=== PATIENT | male | born 1980 | race Caucasian/White ===

== ENCOUNTER 2021-12-27 10:19 | Emergency (ER) | payer SELFPAY ==
[~2021-12-27] VITALS: Ht 185 cm; Wt 85.0 kg
[2021-12-27] MEDS ORDERED: NS IV 1000 ML 1,000 ML IV STA (10:27)
[2021-12-27] MEDS ORDERED: morphine INJ 10 MG/ML 1ML (SYR OR VIAL) IVP STA (10:27)
[2021-12-27] MEDS ORDERED: ONDANSETRON 4 MG/2 ML (SDV) Z0FRAN IVP STA (10:27)
[2021-12-27] MEDS ORDERED: TETANUS,DIPTH,PERTUSS P/F (BOOSTRIX) 0.5 ML VIAL IM ONE (10:30)
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
[2021-12-27 11:03] VITALS: BP 156/98
[2021-12-27] MEDS ORDERED: LACTATED RINGERS 1,000 ML IV STA (11:09)
== END 2021-12-27 11:40 | disposition short-term general hospital (02) ==
LOC: ER FS 10:23
DX: T23.392A Burn of third degree of multiple sites of left wrist and hand, initial encounter (principal); T23.391A Burn of third degree of multiple sites of right wrist and hand, initial encounter; T20.20XA Burn of second degree of head, face, and neck, unspecified site, initial encounter; T31.10 Burns involving 10-19% of body surface with 0% to 9% third degree burns; Z23 Encounter for immunization; X08.8XXA Exposure to other specified smoke, fire and flames, initial encounter
CPT/HCPCS: 90715

== ENCOUNTER 2023-02-01 15:01 | Emergency (ER) | payer SELFPAY ==
[~2023-02-01] VITALS: Ht 185 cm; Wt 85.0 kg
[2023-02-01] MEDS ORDERED: LIDOCAINE 1% INJ 20 ML VIAL ONE (15:10)
[2023-02-01] MEDS ORDERED: LIDOCAINE 1% INJ 20 ML VIAL INJ ONE (15:15)
[2023-02-01] MEDS ORDERED: TETANUS,DIPTH,PERTUSS P/F (BOOSTRIX) 0.5 ML VIAL IM ONE (15:15)
--- NOTE | 2023-02-01 15:30 | Diagnostic Imaging Report ---
CLINICAL INDICATION: Patient with laceration of the middle and ring fingers of the right hand. Patient cut finger with a chainsaw. EXAM: X-ray of the right hand fingers, three views. COMPARISON: None. FINDINGS AND IMPRESSION: 1: There is no fracture or dislocation seen on this exam. 2: There are soft tissue avulsion injuries involving the volar aspect of the third and fourth digits in the region of the middle phalanx. There is no radiodense foreign object. 3: The remainder of this exam is unremarkable. Dictated by: Dictated on workstation # [id number]
--- NOTE | 2023-02-01 16:19 | ED Upper Extremity ---
General Chief Complaint: Laceration Stated Complaint: RT FINGERS LAC Nursing Triage Note: Patient has presented to ER with cc of laceration to his middle and ring finger of his right hand. He reports that he cut his finger with a chainsaw. Source: patient Exam Limitations: no limitations History of Present Illness Date Seen by Provider: Feb 01, 2023 Time Seen by Provider: 15:04 Initial Comments 42-year-old right-handed male patient is stated he had a chainsaw injury to right middle and ring fingers prior to arrival to ER. Patient denies focal neurodeficit and other injuries. Patient rated his pain as a mild pain. Patient is not up-to-date with tetanus immunization. Onset: just prior to arrival Pain/Injury Location: right 3rd finger, right 4th finger Method of Injury: incised (Chainsaw) Allergies and Home Medications Allergies Coded Allergies: No Known Drug Allergies (Unverified , 12/27/21) Patient Home Medication List Home Medication List Reviewed: Yes Cephalexin (Cephalexin) 500 Mg Tablet, 500 MG PO QID Prescribed by: Marjorie aguila on 02/01/23 1633 Hydrocodone/Acetaminophen (Hydrocodone-Acetamin 5-325 mg) 5 Mg-325 Mg Tablet, 1 TAB PO Q6H PRN for PAIN-MODERATE (5-7) Prescribed by: Marjorie aguila on 02/01/23 1634 Review of Systems Constitutional: see HPI EENTM: see HPI Respiratory: see HPI Cardiovascular: see HPI Gastrointestinal: see HPI Genitourinary: see HPI Musculoskeletal: see HPI Skin: see HPI Psychiatric/Neurological: No Symptoms Reported, See HPI Past Pmwbert-Fzqsjv-Kkwstl Hx Patient Social History Tobacco Use?: No Use of E-Cig and/or Vaping dev: No Substance use?: No Alcohol Use?: No Immunizations Up To Date Tetanus Booster (TDap): More than 5yrs Past Medical History Surgery/Hospitalization HX: Hypertension Surgeries: No Respiratory: No Cardiac: Yes Hypertension Physical Exam Vital Signs Vital Signs - First Documented 02/01/23 15:11 Pulse 76 Resp 16 B/P (MAP) 152/82 (105) Pulse Ox 96 O2 Delivery Room Air Capillary Refill : Height, Weight, BMI Height: '" Weight: lbs. oz. kg; 24.00 BMI Method: General Appearance: WD/WN, no apparent distress HEENT: PERRL/EOMI Neck: non-tender Cardiovascular: regular rate, rhythm, no edema Respiratory: chest non-tender, lungs clear, normal breath sounds, no respiratory distress, no accessory muscle use Back: normal inspection Shoulder: normal inspection Elbow/Forearm: normal inspection Wrist: Yes normal inspection Hand: Right, laceration Neurologic/Tendon: normal sensation, tendon function deficit (Index finger impaired flexion of distal phalanx) Skin: other (Laceration of volar side of third right finger in medial phalanx 1.5 cm with contused tissue, deep laceration and contused tissue with exposed fat tissue of volar side of right fourth finger on middle phalanx with limited flexion of distal phalanx ) Procedures/Interventions Other Wound Location Right ring finger Right middle finger Wound Length (cm): 2 Wound's Depth, Shape: irregular, stellate, contused tissue, sub Q, tendon Wound Explored: no foreign body removed Irrigated w/ Saline (ccs): 250 Anesthesia: 1% Lidocaine (Digital block and local anesthesia) Volume Anesthetic (ccs): 8 Wound Debrided: minimal Suture: Prolene Suture Size: 4-0 Number of Sutures: 7 Sterile Dressing Applied?: Yes Progress Nonadhesive dressing and finger splint was applied Laceration of right middle finger of 1.5 cm length of laceration was repaired with 3 sutures of 4-0 after local anesthesia with lidocaine 1%. Dressing was applied.. Progress/Results/Core Measures Results/Orders My Orders Orders - MARJORIE AGUILA MD Finger(S) (02/01/23 15:10) Dipht,Pertuss(Acell),Tet Adult (Boostrix (02/01/23 15:15) Lidocaine 1% Inj 20 Ml (Xylocaine 1% Inj (02/01/23 15:15) Lidocaine 1% Inj 20 Ml (Xylocaine 1% Inj (02/01/23 15:10) Medications Given in ED Current Medications Medications Dose Ordered Sig/Richy Route Start Time Stop Time Status Last Admin Dose Admin Diphtheria/ Tetanus/Acell Pertussis 0.5 ml ONCE ONCE IM 02/01/23 15:15 02/01/23 15:16 DC 02/01/23 15:22 0.5 ML Lidocaine HCl 20 ml ONCE ONCE INJ 02/01/23 15:15 02/01/23 15:16 DC 02/01/23 15:21 20 ML Vital Signs/I&O 02/01/23 02/01/23 15:11 16:40 Pulse 76 76 Resp 16 16 B/P (MAP) 152/82 (105) 152/82 Pulse Ox 96 96 O2 Delivery Room Air Room Air Blood Pressure Mean: 105 Progress Progress Note : Progress Note Right-handed patient with chainsaw injury to right middle and ring finger with tendon injury in ring finger with limited flexion of distal phalanx. Patient h ad contused tissue and missing his skin of ring finger and wound approximated with 7 sutures of 4-0 nylon and nonadhesive dressing and finger splint was applied. Also middle finger wound was repaired with 3 sutures of 4-0 and dressing was applied. Patient did not want pain medication in ER. Tetanus immunization was given. Tried to contact [facility] with orthopedic group for hand surgeon without respond at time of discharge patient and patient was informed to contact their number and we will try to contact them again to make some appointment for patient possibly on Saturday. Prescription for [place] and cephalexin was given and patient advised to take ibuprofen as needed for pain and if not getting better and use hydrocodone Departure Impression Primary Impression: Laceration of right ring finger with tendon involvement Qualified Codes: S61.214A - Laceration without foreign body of right ring finger without damage to nail, initial encounter Additional Impression: Laceration of right middle finger Qualified Codes: S61.212D - Laceration without foreign body of right middle finger without damage to nail, subsequent encounter Disposition: 01 HOME, SELF-CARE Condition: Improved Departure-Patient Inst. Decision time for Depature: 16:29 Referrals: NO,LOCAL PHYSICIAN (PCP/Family) Primary Care Physician Patient Instructions: Tendon Laceration (DC), Tetanus Toxoid (Adsorbed), Wound Care ED Add. Discharge Instructions: Follow[facility]up with [facility] at [address] [place] [address].Jayashree Escobar [place], call [phone] to make an appointment on Saturday Keep wound clean and dry Take your antibiotic and ibuprofen as needed for pain Return to ER as needed All discharge instructions reviewed with patient and/or family. Voiced understanding. Scripts Hydrocodone/Acetaminophen (Hydrocodone-Acetamin 5-325 mg) 5 Mg-325 Mg Tablet 1 TAB PO Q6H PRN for PAIN-MODERATE (5-7), #10 TAB Prov: MARJORIE AGUILA MD 02/01/23 Cephalexin (Cephalexin) 500 Mg Tablet 500 MG PO QID, #28 TAB 0 Refills Prov: MARJORIE AGUILA MD 02/01/23 MARJORIE AGUILA MD Feb 01, 2023 16:19
[2023-02-01] MEDS ORDERED: ACHD5005 PO (16:33)
[2023-02-01] MEDS ORDERED: CEPH500T PO (16:33)
[2023-02-01 16:40] VITALS: BP 152/82
== END 2023-02-01 16:40 | disposition home or self-care (01) ==
LOC: EDUNIT# 15:01 → ER FS 15:03
DX: S61.212A Laceration without foreign body of right middle finger without damage to nail, initial encounter (principal); S61.214A Laceration without foreign body of right ring finger without damage to nail, initial encounter; Z23 Encounter for immunization; W29.3XXA Contact with powered garden and outdoor hand tools and machinery, initial encounter
CPT/HCPCS: 12001; 64450; 73140; 90715